=== PATIENT | male | born 1945 | race Caucasian/White ===

== ENCOUNTER 2016-05-26 10:15 | Emergency (ER) | payer OTHER ==
[~2016-05-26] VITALS: Ht 188 cm; Wt 77.3 kg
[~2016-05-26 10:15] MED LIST: ASPIR 8181 M1 PO; CARVEDILOL3.125 MG PO; CRESTOR10 MG PO; CYANOCOBAL1000 MCG/2 IM; DONEPEZIL HCL10 MG PO; FLOMAX0.4 MG PO; LISINOPRIL10 MG PO; TRIAZOLAM0.125 MG PO; VITAMIN D1000 INTUN PO; XARELTO20 MG PO
[2016-05-26 10:51] LABS: ADD MIUA? YES; BILIRUBIN SMALL; BLOOD LARGE; COLOR DK YELLOW ((YELLOW)); GLUCOSE (STRIP) NEGATIVE; KETONES TRACE; LEUKOCYTES NEGATIVE; NITRITE NEGATIVE; PH, URINE 5.5 (5-8); PROTEIN (STRIP) 30; SPECIFIC GRAVITY 1.027 (1.000-1.030)
[2016-05-26 11:03] LABS: HEMATOCRIT 40.1 % (38.0-50.0); MCH 31.4 PG (29.0-34.0); MCHC 34.2 G/DL (30.0-36.0); MCV 91.8 FL (86-99); MEAN PLAT.VOLUME 10.4 uM^3 (9.0-12.4); PLATELET COUNT 61 K/uL (156-360); RBC DIS.WIDTH-CV 12.9 % (11.8-14.6); RBC DIS.WIDTH-SD 41.9 % (39-53); RED BLOOD COUNT 4.37 M/uL (4.00-5.50)
[2016-05-26 11:04] LABS: BACTERIA 2+; CASTS PRESENT /LPF; CRYSTALS NONE SEEN; EPITHELIAL CELLS 1+; MUCUS 2+; UCUL ADDED? NO; WHITE BLOOD CELLS 0-5 /HPF (0-5)
[2016-05-26 11:04] LABS: EOSINOPHIL (%) 0 % (0-5); IMMATURE GRANULOCYTE (%) 0.3 % (0.0-0.7); IMMATURE GRANULOCYTE COUNT 0.1 K/uL; LYMPHOCYTE COUNT 0.4 K/uL (1.0-2.8); MONOCYTE (%) 17.1 % (3-12); MONOCYTE COUNT 0.7 K/uL (0-0.8); NEUTROPHIL (%) 72.8 % (45-76); NEUTROPHIL COUNT 2.9 K/uL (1.8-6.4)
[2016-05-26 11:05] LABS: COARSE GRANULAR CASTS 0-5 /LPF; HYALINE CASTS 0-5 /LPF
[2016-05-26 11:10] LABS: CHLORIDE 101 mEq/L (99-109); POTASSIUM 3.6 mEq/L (3.7-5.4); SODIUM 137 mEq/L (136-147)
[2016-05-26 11:11] LABS: MAGNESIUM 1.9 mg/dL (1.3-2.7)
[2016-05-26 11:12] LABS: GLUCOSE 95 mg/dL (70-99); INTER. NORMALIZED RATIO 1.5; PROTHROMBIN TIME 15.8 (9.2-11.2)
[2016-05-26 11:14] LABS: ANION GAP 14 MEQ/L (2-14)
[2016-05-26 11:16] LABS: GFR ESTIMATE (CALCULATED) 58 mL/min/
[2016-05-26 11:17] LABS: UREA NITROGEN (BUN) 20 mg/dL (9-23)
[2016-05-26 11:19] LABS: CREATINE KINASE 882 IU/L (1-294)
[2016-05-26 11:22] LABS: TROP-I INTERPRETATION NEGATIVE; TROPONIN-I 0.09 ng/mL (0.0-0.30)
[2016-05-26] MEDS ORDERED: SOMNICIN CAPSU1 EACH PO (11:25)
[2016-05-26] MEDS ORDERED: COREG3.125 M1 PO (12:51)
[2016-05-26] MEDS ORDERED: BACTRIM,SEPT1 TABLET PO (12:53)
[2016-05-26 14:02] VITALS: BP 145/78
[2016-05-27] MEDS ORDERED: CRESTOR20 MG PO (23:20)
[2016-05-27] MEDS ORDERED: TEMOVATE 0.05%30 GM TP (23:21)
[2016-05-27] MEDS ORDERED: VITAMIN D31000 UNI2 PO (23:21)
[2016-05-27] MEDS ORDERED: XARELTO20 MG PO (23:22)
[2016-05-27] MEDS ORDERED: MELATIN3 MG PO (23:23)
[2016-06-05] MEDS ORDERED: ZOFRAN ODT8 MG PO
== END 2016-05-26 14:10 | disposition home or self-care (01) ==
LOC: EME 10:15
PROVIDERS: Emergency Medicine
DX: N39.0 Urinary tract infection, site not specified (principal); S30.1XXA Contusion of abdominal wall, initial encounter; W18.30XA Fall on same level, unspecified, initial encounter; Y92.003 Bedroom of unspecified non-institutional (private) residence as the place of occurrence of the external cause; G30.9 Alzheimer's disease, unspecified; F02.80 Dementia in other diseases classified elsewhere, unspecified severity, without behavioral disturbance, psychotic disturbance, mood disturbance, and anxiety; I10 Essential (primary) hypertension; F17.200 Nicotine dependence, unspecified, uncomplicated; Z79.82 Long term (current) use of aspirin; Z79.01 Long term (current) use of anticoagulants; Z86.73 Personal history of transient ischemic attack (TIA), and cerebral infarction without residual deficits; Z88.0 Allergy status to penicillin; Z88.1 Allergy status to other antibiotic agents
CPT/HCPCS: 70450; 71010; 74177; 80048; 81003; 82550 91; 83735; 84484; 85025; 85610; 85730; 93005; 99281; 99285; J7030

== ENCOUNTER 2016-05-27 19:58 | Inpatient (IN) | payer OTHER ==
[~2016-05-27] VITALS: Ht 188 cm; Wt 73.7 kg
[~2016-05-27 19:58] MED LIST changes: +BACTRIM,SEPT1 TABLET PO; +COREG3.125 M1 PO; +SOMNICIN CAPSU1 EACH PO
[2016-05-27 21:39] LABS: ADD MIUA? YES; BILIRUBIN SMALL; BLOOD SMALL; COLOR DK YELLOW ((YELLOW)); GLUCOSE (STRIP) NEGATIVE; KETONES TRACE; LEUKOCYTES NEGATIVE; NITRITE NEGATIVE; PH, URINE 5.5 (5-8); PROTEIN (STRIP) 30; SPECIFIC GRAVITY 1.033 (1.000-1.030)
[2016-05-27 22:03] LABS: RED BLOOD CELLS 0-5 /HPF (0-5)
[2016-05-27 22:04] LABS: BACTERIA RARE; CASTS PRESENT /LPF; CELLULAR CASTS RARE /LPF; CRYSTALS NONE SEEN; EPITHELIAL CELLS 1+; FINE GRANULAR CASTS 0-5 /LPF; HYALINE CASTS 40-45 /LPF; MUCUS 1+; UCUL ADDED? NO; WHITE BLOOD CELLS RARE /HPF (0-5)
[2016-05-27 22:32] LABS: HEMATOCRIT 36.8 % (38.0-50.0); MCH 31.7 PG (29.0-34.0); MCHC 34.5 G/DL (30.0-36.0); MCV 91.8 FL (86-99); MEAN PLAT.VOLUME 10.1 uM^3 (9.0-12.4); PLATELET COUNT 54 K/uL (156-360); RBC DIS.WIDTH-SD 42.7 % (39-53); RED BLOOD COUNT 4.01 M/uL (4.00-5.50); WHITE BLOOD COUNT 3.6 K/uL (4.1-10.2)
[2016-05-27 22:40] LABS: CHLORIDE 104 mEq/L (99-109); POTASSIUM 3.3 mEq/L (3.7-5.4); SODIUM 139 mEq/L (136-147)
[2016-05-27 22:42] LABS: GLUCOSE 88 mg/dL (70-99)
[2016-05-27 22:43] LABS: ANION GAP 11 MEQ/L (2-14)
[2016-05-27 22:45] LABS: GFR ESTIMATE (CALCULATED) 49 mL/min/
[2016-05-27 22:47] LABS: UREA NITROGEN (BUN) 34 mg/dL (9-23)
[2016-05-27 22:49] LABS: INFLUENZA A VIRAL ANTIGEN POSITIVE; INFLUENZA B VIRAL ANTIGEN NEGATIVE
[2016-05-27] MEDS ORDERED: CRESTOR20 MG PO (23:20)
[2016-05-27] MEDS ORDERED: VITAMIN D31000 UNI2 PO (23:21)
[2016-05-27] MEDS ORDERED: TEMOVATE 0.05%30 GM TP (23:21)
[2016-05-27] MEDS ORDERED: XARELTO20 MG PO (23:22)
[2016-05-27] MEDS ORDERED: MELATIN3 MG PO (23:23)
[2016-05-28 01:54] LABS: TOTAL CK 1208 IU/L (1-294)
[2016-05-28 01:55] LABS: CREATINE KINASE 1208 IU/L (1-294)
[2016-05-28 01:59] LABS: CK-MB 3.8 ng/mL (0.0-4.9)
[2016-05-28 02:08] VITALS: BP 143/79
[2016-05-28 04:26] VITALS: BP 154/84
[2016-05-28 06:07] LABS: HEMATOCRIT 35.5 % (38.0-50.0); MCH 31.7 PG (29.0-34.0); MCHC 33.5 G/DL (30.0-36.0); MCV 94.7 FL (86-99); MEAN PLAT.VOLUME 11.2 uM^3 (9.0-12.4); PLATELET COUNT 53 K/uL (156-360); RBC DIS.WIDTH-CV 13.4 % (11.8-14.6); RBC DIS.WIDTH-SD 46.4 % (39-53); RED BLOOD COUNT 3.75 M/uL (4.00-5.50); WHITE BLOOD COUNT 3.2 K/uL (4.1-10.2)
[2016-05-28 07:49] LABS: ALKALINE PHOSPHATASE 30 IU/L (3-129); ANION GAP 12 MEQ/L (2-14); CHLORIDE 105 MEQ/L (99-109); GFR ESTIMATE (CALCULATED) > 59 mL/min/; GLUCOSE 79 mg/dL (70-99); POTASSIUM 3.4 MEQ/L (3.7-5.4); SAMPLE HEMOLYSIS CHECK 0; SAMPLE ICTERIC CHECK 0; SAMPLE LIPEMIA CHECK 0; SODIUM 140 MEQ/L (136-147); TOTAL BILIRUBIN 0.8 MG/DL (0.0-1.0); UREA NITROGEN (BUN) 30 mg/dL (9-23)
[2016-05-28 07:53] VITALS: BP 156/74
[2016-05-28 15:57] VITALS: BP 159/68
[2016-05-28 20:10] VITALS: BP 140/76
[2016-05-29 00:38] VITALS: BP 138/66
[2016-05-29 03:11] VITALS: BP 166/74
[2016-05-29 07:01] LABS: HEMATOCRIT 31.4 % (38.0-50.0); MCHC 33.1 G/DL (30.0-36.0); MCV 93.5 FL (86-99); RBC DIS.WIDTH-CV 13.3 % (11.8-14.6); RBC DIS.WIDTH-SD 45.6 % (39-53); RED BLOOD COUNT 3.36 M/uL (4.00-5.50); WHITE BLOOD COUNT 2.5 K/uL (4.1-10.2)
[2016-05-29 08:09] LABS: MEAN PLAT.VOLUME 10.8 uM^3 (9.0-12.4); PLATELET COUNT 49 K/uL (156-360)
[2016-05-29 08:40] VITALS: BP 114/68
[2016-05-29 09:52] LABS: ANION GAP 11 MEQ/L (2-14); CHLORIDE 109 MEQ/L (99-109); GFR ESTIMATE (CALCULATED) > 59 mL/min/; GLUCOSE 93 mg/dL (70-99); POTASSIUM 3.6 MEQ/L (3.7-5.4); SAMPLE HEMOLYSIS CHECK 0; SAMPLE ICTERIC CHECK 0; SAMPLE LIPEMIA CHECK 0; SODIUM 141 MEQ/L (136-147); UREA NITROGEN (BUN) 25 mg/dL (9-23)
[2016-05-29 12:04] VITALS: BP 114/75
[2016-05-29 19:59] VITALS: BP 126/74
[2016-05-29 23:25] VITALS: BP 136/76
[2016-05-30 04:32] VITALS: BP 177/86
[2016-05-30 08:58] VITALS: BP 166/92
[2016-05-30 12:35] LABS: HEMATOCRIT 30.2 % (38.0-50.0); MCH 31.8 PG (29.0-34.0); MCHC 33.8 G/DL (30.0-36.0); MCV 94.1 FL (86-99); RBC DIS.WIDTH-CV 13.3 % (11.8-14.6); RBC DIS.WIDTH-SD 46.3 % (39-53); RED BLOOD COUNT 3.21 M/uL (4.00-5.50); WHITE BLOOD COUNT 2.4 K/uL (4.1-10.2)
[2016-05-30 12:52] VITALS: BP 149/67
[2016-05-30 13:45] LABS: MEAN PLAT.VOLUME 11.3 uM^3 (9.0-12.4); PLATELET COUNT 47 K/uL (156-360)
[2016-05-30] MEDS ORDERED: TAMIFLU75 MG PO (16:17)
[2016-05-30 16:48] VITALS: BP 191/89
[2016-06-05] MEDS ORDERED: ZOFRAN ODT8 MG PO
== END 2016-05-30 18:18 | disposition home or self-care (01) | DRG 948 ==
LOC: EME → EDBD 19:58 → EDOF 05-28 00:55 → 5WEST 05-28 00:55 → EDOF 05-28 00:55 → 5WEST 05-28 01:50
PROVIDERS: Emergency Medicine; Internal Medicine; Nurse Practitioner Family
DX: R41.82 Altered mental status, unspecified (principal); M62.82 Rhabdomyolysis; E86.0 Dehydration; E87.6 Hypokalemia; D69.6 Thrombocytopenia, unspecified; J11.1 Influenza due to unidentified influenza virus with other respiratory manifestations; R53.1 Weakness; I10 Essential (primary) hypertension; E78.00 Pure hypercholesterolemia, unspecified; I48.0 Paroxysmal atrial fibrillation; G30.9 Alzheimer's disease, unspecified; F02.80 Dementia in other diseases classified elsewhere, unspecified severity, without behavioral disturbance, psychotic disturbance, mood disturbance, and anxiety; N40.0 Benign prostatic hyperplasia without lower urinary tract symptoms; F17.210 Nicotine dependence, cigarettes, uncomplicated; Z95.810 Presence of automatic (implantable) cardiac defibrillator; I25.2 Old myocardial infarction; Z79.82 Long term (current) use of aspirin; Z88.0 Allergy status to penicillin; Z88.1 Allergy status to other antibiotic agents; Z91.81 History of falling; Z86.73 Personal history of transient ischemic attack (TIA), and cerebral infarction without residual deficits; Z79.01 Long term (current) use of anticoagulants
CPT/HCPCS: 70450; 71010; 71020; 73502; 74177; 80048; 80053; 81003; 82550; 82550 91; 82553; 83605; 83735; 84484; 85025; 85027; 85610; 85730; 87040; 87502; 93005; 99281; 99285; G8978 GP CM; G8982 GP CI; G8987 GO CJ; G8988 CI; J3480; J7030; S0028

== ENCOUNTER 2016-06-05 20:23 | Emergency (ER) | payer OTHER ==
[~2016-06-05] VITALS: Ht 182.9 cm; Wt 74.3 kg
[~2016-06-05 20:23] MED LIST changes: +CRESTOR20 MG PO; +MELATIN3 MG PO; +TAMIFLU75 MG PO; +TEMOVATE 0.05%30 GM TP; +VITAMIN D31000 UNI2 PO; +ZOFRAN ODT8 MG PO
[2016-06-05 20:59] LABS: HEMATOCRIT 34.5 % (38.0-50.0); MCH 31.1 PG (29.0-34.0); MCHC 33.6 G/DL (30.0-36.0); MCV 92.5 FL (86-99); PLATELET COUNT 165 K/uL (156-360); RBC DIS.WIDTH-CV 13.1 % (11.8-14.6); RBC DIS.WIDTH-SD 41.4 % (39-53); RED BLOOD COUNT 3.73 M/uL (4.00-5.50); WHITE BLOOD COUNT 4.6 K/uL (4.1-10.2)
[2016-06-05 21:09] LABS: CHLORIDE 102 mEq/L (99-109); POTASSIUM 3.1 mEq/L (3.7-5.4); SODIUM 139 mEq/L (136-147)
[2016-06-05 21:11] LABS: GLUCOSE 150 mg/dL (70-99)
[2016-06-05 21:13] LABS: ANION GAP 10 MEQ/L (2-14); TOTAL BILIRUBIN 1.2 mg/dL (0.0-1.0)
[2016-06-05 21:15] LABS: ALKALINE PHOSPHATASE 49 IU/L (3-129); GFR ESTIMATE (CALCULATED) > 59 mL/min/
[2016-06-05 21:16] LABS: UREA NITROGEN (BUN) 15 mg/dL (9-23)
[2016-06-05 21:53] LABS: ADD MIUA? YES; BILIRUBIN MODERATE; BLOOD NEGATIVE; GLUCOSE (STRIP) NEGATIVE; KETONES NEGATIVE; LEUKOCYTES NEGATIVE; NITRITE NEGATIVE; PROTEIN (STRIP) 100; SPECIFIC GRAVITY 1.031 (1.000-1.030)
[2016-06-05 21:54] LABS: COLOR AMBER ((YELLOW))
[2016-06-05 22:08] LABS: ICTOTEST NEGATIVE
[2016-06-05 22:35] LABS: EPITHELIAL CELLS NONE SEEN; MUCUS 4+; RED BLOOD CELLS 0-5 /HPF (0-5); WHITE BLOOD CELLS 0-5 /HPF (0-5)
[2016-06-05 22:36] LABS: BACTERIA 2+; CALCIUM OXALATE CRYSTALS 1+; CASTS NONE SEEN /LPF; CRYSTALS PRESENT; OTHER SPERM CELLS; UCUL ADDED? NO
[2016-06-05 22:44] LABS: EOSINOPHIL (%) 0 % (0-5); IMMATURE GRANULOCYTE (%) 0.5 % (0.0-0.7); LYMPHOCYTE COUNT 0.9 K/uL (1.0-2.8); MONOCYTE (%) 10.2 % (3-12); MONOCYTE COUNT 0.5 K/uL (0-0.8); NEUTROPHIL (%) 69.4 % (45-76); NEUTROPHIL COUNT 3.1 K/uL (1.8-6.4)
[2016-06-06 01:17] VITALS: BP 169/86
== END 2016-06-06 01:18 | disposition home or self-care (01) ==
LOC: EME 20:23
DX: E86.0 Dehydration (principal); E87.6 Hypokalemia; R10.9 Unspecified abdominal pain; R11.2 Nausea with vomiting, unspecified; R19.7 Diarrhea, unspecified; R05 Cough; I10 Essential (primary) hypertension; Z95.810 Presence of automatic (implantable) cardiac defibrillator; Z79.01 Long term (current) use of anticoagulants; Z79.82 Long term (current) use of aspirin; F17.200 Nicotine dependence, unspecified, uncomplicated; Z71.6 Tobacco abuse counseling
CPT/HCPCS: 71020; 74020; 80053; 81003; 83605; 85025; 85027; 99281; 99285; J2405; J7030; S0028

== ENCOUNTER 2016-09-15 14:03 | Observation (INO) | payer OTHER ==
[~2016-09-15] VITALS: Ht 188 cm; Wt 76.9 kg
[2016-09-15 14:40] LABS: EOSINOPHIL (%) 0.7 % (0-5); HEMATOCRIT 39.9 % (38.0-50.0); IMMATURE GRANULOCYTE (%) 0.2 % (0.0-0.7); INSTRUMENT ABS NEUTROPHIL CT 2.9 K/uL; LYMPHOCYTE COUNT 0.9 K/uL (1.0-2.8); MCH 31.4 PG (29.0-34.0); MCHC 33.1 G/DL (30.0-36.0); MCV 94.8 FL (86-99); MEAN PLAT.VOLUME 10.1 uM^3 (9.0-12.4); MONOCYTE (%) 7.9 % (3-12); MONOCYTE COUNT 0.3 K/uL (0-0.8); NEUTROPHIL (%) 69.4 % (45-76); NEUTROPHIL COUNT 2.9 K/uL (1.8-6.4); PLATELET COUNT 84 K/uL (156-360); RBC DIS.WIDTH-CV 12.9 % (11.8-14.6); RBC DIS.WIDTH-SD 44.5 % (39-53); RED BLOOD COUNT 4.21 M/uL (4.00-5.50); WHITE BLOOD COUNT 4.2 K/uL (4.1-10.2)
[2016-09-15 14:48] LABS: CHLORIDE 106 mEq/L (99-109); SODIUM 141 mEq/L (136-147)
[2016-09-15 14:50] LABS: GLUCOSE 131 mg/dL (70-99); INTER. NORMALIZED RATIO 1.3; PROTHROMBIN TIME 13.8 (9.2-11.2); PTT 43.4 (25-32)
[2016-09-15 14:51] LABS: ANION GAP 7 MEQ/L (2-14)
[2016-09-15 14:54] LABS: GFR ESTIMATE (CALCULATED) 53 mL/min/; UREA NITROGEN (BUN) 16 mg/dL (9-23)
[2016-09-15 15:01] LABS: TROP-I INTERPRETATION NEGATIVE; TROPONIN-I < 0.01 ng/mL (0.0-0.30)
[2016-09-15] MEDS ORDERED: CRESTOR10 MG PO (15:59)
[2016-09-15] MEDS ORDERED: LISINOPRIL20 MG PO (16:00)
[2016-09-15] MEDS ORDERED: LO-DOSE ASPIRIN81 M2 PO (16:01)
[2016-09-15] MEDS ORDERED: KLOR-CON M2020 MEQ PO (16:01)
[2016-09-15] MEDS ORDERED: XARELTO15 MG PO (16:02)
[2016-09-15] MEDS ORDERED: XARELTO20 MG PO (16:05)
[2016-09-15 16:47] VITALS: BP 177/79
[2016-09-15 16:48] VITALS: BP 159/73
[2016-09-15 16:50] VITALS: BP 129/59
[2016-09-15 19:00] VITALS: BP 146/72
[2016-09-15 19:39] LABS: TROP-I INTERPRETATION NEGATIVE; TROPONIN-I 0.02 ng/mL (0.0-0.30)
[2016-09-16 01:12] VITALS: BP 145/73
[2016-09-16 01:31] LABS: TROP-I INTERPRETATION NEGATIVE; TROPONIN-I < 0.01 ng/mL (0.0-0.30)
[2016-09-16 04:00] VITALS: BP 149/85
[2016-09-16 08:11] LABS: TROP-I INTERPRETATION NEGATIVE; TROPONIN-I 0.01 ng/mL (0.0-0.30)
[2016-09-16 09:58] VITALS: BP 163/74
[2016-09-16 13:14] LABS: ADD MIUA? NO; BILIRUBIN NEGATIVE; BLOOD NEGATIVE; COLOR YELLOW ((YELLOW)); GLUCOSE (STRIP) NEGATIVE; KETONES NEGATIVE; LEUKOCYTES NEGATIVE; NITRITE NEGATIVE; PROTEIN (STRIP) NEGATIVE; UCUL ADDED? NO; UROBILINOGEN 0.2 MG/DL (0.2-1.0)
== END 2016-09-16 11:38 | disposition home or self-care (01) ==
LOC: EME 14:03 → EDOF 15:57 → 5WEST 15:57
PROVIDERS: Emergency Medicine; Hospitalist
DX: I95.1 Orthostatic hypotension (principal); R55 Syncope and collapse; E86.0 Dehydration; I48.91 Unspecified atrial fibrillation; Z79.01 Long term (current) use of anticoagulants; I25.2 Old myocardial infarction; Z86.73 Personal history of transient ischemic attack (TIA), and cerebral infarction without residual deficits; Z95.810 Presence of automatic (implantable) cardiac defibrillator; F17.200 Nicotine dependence, unspecified, uncomplicated; I48.2 Chronic atrial fibrillation; E78.5 Hyperlipidemia, unspecified; I12.9 Hypertensive chronic kidney disease with stage 1 through stage 4 chronic kidney disease, or unspecified chronic kidney disease; N18.9 Chronic kidney disease, unspecified
CPT/HCPCS: 70450; 71010; 80048; 81003; 84484; 85025; 85610; 85730; 93005; 99281; 99285; G0378; J7030

== ENCOUNTER 2017-02-05 16:38 | Inpatient (IN) | payer OTHER ==
[~2017-02-05] VITALS: Ht 188 cm; Wt 66.2 kg
[~2017-02-05 16:38] MED LIST changes: +KLOR-CON M2020 MEQ PO; +LISINOPRIL20 MG PO; +LO-DOSE ASPIRIN81 M2 PO; +XARELTO15 MG PO
[2017-02-05 17:59] LABS: MCH 30.9 PG (29.0-34.0); MCHC 33.4 G/DL (30.0-36.0); MCV 92.5 FL (86-99); MEAN PLAT.VOLUME 9.9 uM^3 (9.0-12.4); PLATELET COUNT 90 K/uL (156-360); RBC DIS.WIDTH-CV 12.9 % (11.8-14.6); RBC DIS.WIDTH-SD 43.4 % (39-53); RED BLOOD COUNT 4.11 M/uL (4.00-5.50); WHITE BLOOD COUNT 5.3 K/uL (4.1-10.2)
[2017-02-05 18:07] LABS: INTER. NORMALIZED RATIO 3.3; PROTHROMBIN TIME 37.5 SEC (10.2-12.9)
[2017-02-05 18:09] LABS: CHLORIDE 106 mEq/L (99-109); POTASSIUM 3.2 mEq/L (3.7-5.4); SODIUM 139 mEq/L (136-147)
[2017-02-05 18:10] LABS: PTT 69.3 SEC (25-37)
[2017-02-05 18:11] LABS: GLUCOSE 91 mg/dL (70-99)
[2017-02-05 18:12] LABS: ANION GAP 9 MEQ/L (2-14)
[2017-02-05 18:13] LABS: TOTAL BILIRUBIN 0.7 mg/dL (0.0-1.0)
[2017-02-05 18:15] LABS: ALKALINE PHOSPHATASE 46 IU/L (3-129); GFR ESTIMATE (CALCULATED) > 59 mL/min/
[2017-02-05 18:16] LABS: UREA NITROGEN (BUN) 18 mg/dL (9-23)
[2017-02-05 18:17] LABS: DIRECT BILIRUBIN 0.4 mg/dL (0.0-0.3)
[2017-02-05 18:20] LABS: TROP-I INTERPRETATION NEGATIVE; TROPONIN-I 0.02 ng/mL (0.0-0.30)
[2017-02-05 18:34] LABS: ABS NEUTROPHIL COUNT 3.7; ATYPICAL LYMPHOCYTE 9.9 %; EOSINOPHIL ABS CT 0; INSTRUMENT ABS NEUTROPHIL CT 3.5 K/uL; LYMPHOCYTES 13.5 % (15.0-45.0); SEG.NEUTROPHILS 69.4 % (46.0-76.0)
[2017-02-05 18:36] LABS: ADD MIUA? YES; BILIRUBIN NEGATIVE; BLOOD LARGE; COLOR AMBER ((YELLOW)); GLUCOSE (STRIP) NEGATIVE; KETONES NEGATIVE; LEUKOCYTES TRACE; NITRITE NEGATIVE; PROTEIN (STRIP) 100; SPECIFIC GRAVITY 1.034 (1.000-1.030)
[2017-02-05 18:46] LABS: BACTERIA RARE /HPF; EPITHELIAL CELLS RARE /HPF; MUCUS 2+ /LPF; RED BLOOD CELLS TNTC /HPF (0-5); UCUL ADDED? YES
[2017-02-05] MEDS ORDERED: BACTRIM,SEPT1 TABLET PO (20:18)
[2017-02-05] MEDS ORDERED: FLUZONE HI180 MCG/08 IM (21:56)
[2017-02-05] MEDS ORDERED: CALCIUM + D SO1 EACH PO (21:56)
[2017-02-06] VITALS (7 sets, daily range): BP systolic 123–200; BP diastolic 63–95
[2017-02-06 02:40] LABS: HDL CHOLESTEROL 32 MG/DL (Desirable>=40); LDL CHOLESTEROL 18 mg/dL (Desirable<100); NON-HDL CHOLESTEROL 30 mg/dL (Desirable<160); TOTAL CHOLESTEROL 62 mg/dL (Desirable<200); TRIGLYCERIDES 59 MG/DL (Normal: <150)
[2017-02-06 07:21] LABS: Estimated Average Glucose 120 mg/dL (70-123); HEMOGLOBIN A1c (GLYCOHEMOGLOB) 5.8 % HGB (Below 5.7)
[2017-02-06 09:27] LABS: PTT 59.6 SEC (25-37)
[2017-02-06 09:29] LABS: INTER. NORMALIZED RATIO 1.8; PROTHROMBIN TIME 20.5 SEC (10.2-12.9)
[2017-02-06 09:42] LABS: ANION GAP 8 MEQ/L (2-14); CHLORIDE 107 MEQ/L (99-109); GFR ESTIMATE (CALCULATED) > 59 mL/min/; POTASSIUM 3.2 MEQ/L (3.7-5.4); SAMPLE HEMOLYSIS CHECK 0; SAMPLE ICTERIC CHECK 0; SAMPLE LIPEMIA CHECK 0; SODIUM 142 MEQ/L (136-147); UREA NITROGEN (BUN) 17 mg/dL (9-23)
[2017-02-06 09:43] LABS: GLUCOSE 115 mg/dL (70-99)
[2017-02-07 04:00] VITALS: BP 171/82
[2017-02-07 06:29] LABS: HEMATOCRIT 35.3 % (38.0-50.0); MCH 30.7 PG (29.0-34.0); MCHC 32.9 G/DL (30.0-36.0); MCV 93.4 FL (86-99); MEAN PLAT.VOLUME 10.2 uM^3 (9.0-12.4); PLATELET COUNT 88 K/uL (156-360); RBC DIS.WIDTH-CV 13.1 % (11.8-14.6); RBC DIS.WIDTH-SD 44.8 % (39-53); RED BLOOD COUNT 3.78 M/uL (4.00-5.50); WHITE BLOOD COUNT 5.2 K/uL (4.1-10.2)
[2017-02-07 06:46] LABS: ANION GAP 6 MEQ/L (2-14); CHLORIDE 107 MEQ/L (99-109); GFR ESTIMATE (CALCULATED) > 59 mL/min/; GLUCOSE 91 mg/dL (70-99); POTASSIUM 3.6 MEQ/L (3.7-5.4); SAMPLE HEMOLYSIS CHECK 0; SAMPLE ICTERIC CHECK 0; SAMPLE LIPEMIA CHECK 0; SODIUM 139 MEQ/L (136-147); UREA NITROGEN (BUN) 15 mg/dL (9-23)
[2017-02-07 08:22] VITALS: BP 189/92
[2017-02-07 10:35] VITALS: BP 129/63; BP 131/64; BP 139/66
[2017-02-07] MEDS ORDERED: CARBIDOPA/LEVO1 EACH PO (10:46)
[2017-02-07] MEDS ORDERED: LISINOPRIL20 MG PO (10:46)
[2017-02-07] MEDS ORDERED: AMLODIPINE BESY10 MG PO (10:47)
== END 2017-02-07 14:48 | disposition home health service (06) | DRG 312 ==
LOC: EME 16:38 → 5SOUTH 02-06 00:42 → EDOF 02-06 00:42 → ENRESERV 02-06 00:43 → 5SOUTH 02-06 03:41
PROVIDERS: Emergency Medicine; Physician Assistant Medical
DX: R55 Syncope and collapse (principal); E86.0 Dehydration; D69.6 Thrombocytopenia, unspecified; G20 Parkinson's disease; E87.6 Hypokalemia; G30.9 Alzheimer's disease, unspecified; F02.80 Dementia in other diseases classified elsewhere, unspecified severity, without behavioral disturbance, psychotic disturbance, mood disturbance, and anxiety; F17.200 Nicotine dependence, unspecified, uncomplicated; I11.0 Hypertensive heart disease with heart failure; I50.9 Heart failure, unspecified; I25.10 Atherosclerotic heart disease of native coronary artery without angina pectoris; I25.5 Ischemic cardiomyopathy; I43 Cardiomyopathy in diseases classified elsewhere; I48.0 Paroxysmal atrial fibrillation; N40.0 Benign prostatic hyperplasia without lower urinary tract symptoms; Z79.01 Long term (current) use of anticoagulants; I25.2 Old myocardial infarction; Z86.73 Personal history of transient ischemic attack (TIA), and cerebral infarction without residual deficits; Z95.810 Presence of automatic (implantable) cardiac defibrillator; Z79.82 Long term (current) use of aspirin; Z88.0 Allergy status to penicillin; Z88.1 Allergy status to other antibiotic agents; Z85.51 Personal history of malignant neoplasm of bladder
CPT/HCPCS: 70450; 73030; 80048; 80061; 80076; 81003; 83036; 83605; 83880; 84484; 85025; 85027; 85610; 85730; 87086; 93005; 93880; 99281; 99285; J0360; J0696; J7030; J7050

== ENCOUNTER 2017-11-02 14:18 | Emergency (ER) | payer OTHER ==
[~2017-11-02] VITALS: Ht 185.4 cm; Wt 75.4 kg
[~2017-11-02 14:18] MED LIST changes: +AMLODIPINE BESY10 MG PO; +CALCIUM + D SO1 EACH PO; +CARBIDOPA/LEVO1 EACH PO; +FLUZONE HI180 MCG/08 IM
[2017-11-02 15:39] LABS: HEMATOCRIT 35.8 % (38.0-50.0); MCH 32.3 PG (29.0-34.0); MCHC 33.5 G/DL (30.0-36.0); MCV 96.5 FL (86-99); PLATELET COUNT 61 K/uL (156-360); RBC DIS.WIDTH-CV 14.1 % (11.8-14.6); RED BLOOD COUNT 3.71 M/uL (4.00-5.50); WHITE BLOOD COUNT 5.3 K/uL (4.1-10.2)
[2017-11-02 15:54] LABS: ALBUMIN 3.2 g/dL (3.2-4.8)
[2017-11-02 15:55] LABS: CHLORIDE 104 mEq/L (99-109); POTASSIUM 3.5 mEq/L (3.7-5.4); SODIUM 141 mEq/L (136-147)
[2017-11-02 15:57] LABS: GLUCOSE 87 mg/dL (70-99); TOTAL PROTEIN 4.9 g/dL (6.4-8.3)
[2017-11-02 15:59] LABS: TOTAL BILIRUBIN 0.6 mg/dL (0.0-1.0)
[2017-11-02 16:00] LABS: ALKALINE PHOSPHATASE 41 IU/L (3-129)
[2017-11-02 16:01] LABS: CREATININE 1.2 mg/dL (0.6-1.3); GFR ESTIMATE (CALCULATED) > 59 mL/min/ (58.99-99999)
[2017-11-02 16:02] LABS: AST (GOT) 13 IU/L (2-34); UREA NITROGEN (BUN) 17 mg/dL (9-23)
[2017-11-02 16:04] LABS: ALT (GPT) 19 IU/L (3-49)
[2017-11-02 16:05] LABS: TROP-I INTERPRETATION NEGATIVE; TROPONIN-I 0.02 ng/mL (0.0-0.30)
[2017-11-02 17:34] VITALS: BP 126/84
== END 2017-11-02 17:36 | disposition home or self-care (01) ==
LOC: EME 14:18
PROVIDERS: Nurse Practitioner Family
DX: R42 Dizziness and giddiness (principal); R41.0 Disorientation, unspecified; I51.7 Cardiomegaly; I48.91 Unspecified atrial fibrillation; G30.9 Alzheimer's disease, unspecified; F02.80 Dementia in other diseases classified elsewhere, unspecified severity, without behavioral disturbance, psychotic disturbance, mood disturbance, and anxiety; I10 Essential (primary) hypertension; I25.2 Old myocardial infarction; Z79.01 Long term (current) use of anticoagulants; Z79.82 Long term (current) use of aspirin; Z86.73 Personal history of transient ischemic attack (TIA), and cerebral infarction without residual deficits; Z85.51 Personal history of malignant neoplasm of bladder; F17.200 Nicotine dependence, unspecified, uncomplicated
CPT/HCPCS: 71046; 80053; 84484; 85027; 93005; 99281; 99285; J7030